=== PATIENT | male | born 1970 | race Caucasian/White ===

== ENCOUNTER 2018-07-22 10:44 | Emergency (ER) | payer SELFPAY ==
[2018-07-22 10:53] VITALS: BP 156/82; PULSE 66; RESP 18; TEMP 36.8; O2SAT 98
--- NOTE | 2018-07-22 11:05 | DI.RAD.S_ITS ---
PROCEDURE: XR CHEST 1V INDICATIONS: chest pain TECHNIQUE: One view of the chest was acquired. COMPARISON: None. FINDINGS: Surgical changes and devices: None. Lungs and pleura: Lungs are clear. No pleural effusions or pneumothorax. Mediastinum: Mediastinal contours appear normal. Heart size is normal. Bones and chest wall: No suspicious bony lesions. Overlying soft tissues appear unremarkable. IMPRESSION: No acute process. Dictated by: Cynthia Galeano M.D. on 07/22/2018 at 11:25 Approved by: Cynthia Galeano M.D. on 07/22/2018 at 11:25
[2018-07-22 11:34] VITALS: BP 150/79; PULSE 60; RESP 10; O2SAT 98
[2018-07-22] MEDS: ONDANSETRON 4 MG/2 ML INJ IV (11:58)
--- NOTE | 2018-07-22 12:00 | ED_ITS ---
HPI - Chest Pain General Chief Complaint: Chest Pain Stated Complaint: CHEST PAIN,TIRED,VOMITING Time Seen by Provider: 07/22/18 11:57 Source: patient Mode of arrival: ambulatory Limitations: no limitations History of Present Illness HPI narrative: Patient is a 47-year-old male who presents with chest discomfort. He has had some burning epigastric pain ongoing for the last 4 days. He occasionally feels nauseated and dry heaving but no actual vomit. He has no shortness of breath. He occasionally gets chills which last for about a 2nd but no significant sweats. He has never had anything like this before. He occasionally gets epigastric pain going up into his neck. Lasting briefly. No heart palpitations MD complaint: chest pain Duration: intermittent Related Data Previous Rx's Medication Instructions Recorded ondansetron 4 mg PO Q8H PRN #10 tab 07/22/18 Allergies Allergy/AdvReac Type Severity Reaction Status Date / Time No Known Drug Allergies Allergy Verified 07/22/18 10:58 Review of Systems Review of Systems GENERAL: Denies chills, fatigue, malaise, fever, sweats, travel HEENT: Denies sinus pain, ear pain, sore throat, difficulty swallowing, neck pain RESPIRATORY: Denies dyspnea, cough, wheezing, hemoptysis, sputum. CARDIOVASCULAR: See HPI GASTROINTESTINAL: Denies nausea, vomiting, abdominal pain, diarrhea, constipation, melena. : Denies dysuria, frequency, incontinence, hematuria, urinary retention, flank pain. MUSCULOSKELETAL: Denies weakness, joint pain, or bony pain SKIN: No rash, no erythema, no pruritus NEUROLOGIC: Denies weakness, dizziness, headache, numbness, change in speech, confusion PSYCHIATRIC: No concerning psychosocial issues. 12 point review of systems is negative except for those stated above and HPI [facility] Social History Smoking Status: Current every day smoker Social History Smoking Status: Current every day smoker Exam Initial Vital Signs Initial Vital Signs: Vital Signs Temperature 98.3 F 07/22/18 10:53 Pulse Rate 66 07/22/18 10:53 Respiratory Rate 18 07/22/18 10:53 Blood Pressure 156/82 H 07/22/18 10:53 Pulse Oximetry 98 07/22/18 10:53 GENERAL: Anxious male no acute distress HEENT: Head atraumatic,EOMI, pupils reactive, face symmetric, CARDIOVASCULAR: Regular rate and rhythm without murmurs, rubs or gallops. RESPIRATORY: Breath sounds equal bilaterally, no wheezes rales or rhonchi. ABDOMEN: Soft, nontender. Normoactive bowel sounds all 4 quadrants. No guarding or rebound. Minimal epigastric pain no right upper quadrant pain EXTREMITIES: Normal range of motion, no clubbing or edema. Neurovascularly intact NEUROLOGICAL: Alert and oriented x4.Normal gait and speech. Cranial nerves II through XII grossly intact. SKIN: Warm, dry, no laceration, no petechiae, no rashes or lesions. Course Orders Ordered: ED Orders 07/22/18 11:05 XR chest 1V Stat EKG-12 Lead Stat 07/22/18 11:55 Complete Blood Count AUTO DIFF Stat Comprehensive Metabolic Panel Stat Lipase Stat Partial Thromboplastin Time Stat Prothrombin Time INR Stat Troponin & CK Cardiac Panel Stat Discontinued Medications Albuterol/Ipratropium (Duoneb) 3 ml INH NOW ONE Stop: 07/22/18 12:03 Last Admin: 07/22/18 12:03 Dose: 3 ml Hydroxyzine HCl (Vistaril) 50 mg IM NOW ONE Stop: 07/22/18 12:54 Last Admin: 07/22/18 13:08 Dose: 50 mg Sodium Chloride (Normal Saline 0.9%) 1,000 mls @ 1,000 mls/hr IV BOLUS ONE Stop: 07/22/18 13:10 Last Infusion: 07/22/18 14:01 Dose: 0 mls/hr Admin: 07/22/18 13:08 Dose: 1,000 mls/hr Ondansetron HCl (Zofran) 4 mg IV NOW ONE Stop: 07/22/18 11:19 Last Admin: 07/22/18 11:58 Dose: 4 mg Pantoprazole Sodium (Protonix) 40 mg IV NOW ONE Stop: 07/22/18 12:54 Last Admin: 07/22/18 13:08 Dose: 40 mg Vital Signs - 8 hr 07/22/18 10:53 07/22/18 11:34 07/22/18 12:03 Temperature 98.3 F Pulse Rate 66 60 97 H Respiratory Rate 18 10 L 11 L Blood Pressure 156/82 H Blood Pressure [Left Arm] 150/79 H Pulse Oximetry 98 98 98 07/22/18 12:27 07/22/18 13:35 Temperature Pulse Rate 61 66 Respiratory Rate 18 12 Blood Pressure Blood Pressure [Left Arm] 158/81 H Pulse Oximetry 99 99 MDM - Chest Pain Lab Data Attestation: I reviewed the patient's lab results. Result diagrams: 07/22/18 11:55 07/22/18 11:55 Lab Results 07/22/18 07/22/18 07/22/18 Range/Units 11:55 11:55 11:55 WBC 7.9 (4.5-11.0) X10^3/uL RBC 4.99 (4.5-5.9) X10^6/uL Hgb 16.0 (13.5-17.5) g/dL Hct 46.3 (41-53) % MCV 92.9 (80-100) fL MCH 32.0 (26-34) PG MCHC 34.5 (30-36) % RDW 13.3 (11.6-14.8) % Plt Count 176 (150-400) X10^3/uL Neut % (Auto) 72.2 (50-75) % Lymph % (Auto) 18.3 L (25-40) % [place] % (Auto) 6.4 (3-14) % Eos % (Auto) 2.8 (2-4) % Baso % (Auto) 0.3 (0-2) % Neut # (Auto) 5700 (4477-2626) /uL Lymph # (Auto) 1400 (0333-3785) /uL [place] # (Auto) 500 (0-900) /uL Eos # (Auto) 200 (0-450) /uL Baso # (Auto) 0 (0-100) /uL PT 11.5 (10.1-12.7) SECONDS INR 1.0 (0.9-1.3) APTT 30 (26.4-36.2) SECONDS Sodium 139 (137-145) mmol/L Potassium 4.1 (3.4-5.1) mmol/L Chloride 102 (98-107) mmol/L Carbon Dioxide 27 (22-32) mmol/L BUN 14 (9-20) mg/dL Creatinine 0.60 L (0.66-1.25) mg/dL Estimated GFR > 60.0 (>60) mL/min BUN/Creatinine Ratio 23.3 H (6-22) Glucose 154 H (70-100) mg/dL Calcium 10.3 H (8.4-10.2) mg/dL Total Bilirubin 0.4 (0.2-1.3) mg/dL AST 28 (17-59) IU/L ALT 40 (21-72) IU/L Alkaline Phosphatase 50 (38-126) U/L Total Creatine Kinase 47 L (55-170) U/L CK-MB (CK-2) TNP CK-MB (CK-2) Rel Index TNP Troponin I < 0.012 (0.01-0.034) ng/mL Total Protein 7.5 (6.3-8.2) g/dL Albumin 4.6 (3.5-5.0) g/dL Globulin 2.9 (1.7-4.1) g/dL Albumin/Globulin Ratio 1.6 (1.0-2.8) Lipase 325 H (23-300) U/L Urine Dip Bedside Urine Glucose Negative Bedside Urine Bilirubin - Negative Bedside Urine Ketone - Negative Urine Specific [place] 1.015 Bedside Urine Occult Blood - Negative Bedside Urine pH 7.5 Bedside Urine Protein - Negative Bedside Urine Urobilinogen - Negative Bedside Urine Nitrite - Negative Bedside Urine Leukocytes - Negative Esterase Imaging Data Chest x-ray: Radiologist's impression: PROCEDURE: XR CHEST 1V INDICATIONS: chest pain TECHNIQUE: One view of the chest was acquired. COMPARISON: None. FINDINGS: Surgical changes and devices: None. Lungs and pleura: Lungs are clear. No pleural effusions or pneumothorax. Mediastinum: Mediastinal contours appear normal. Heart size is normal. Bones and chest wall: No suspicious bony lesions. Overlying soft tissues appear unremarkable. IMPRESSION: No acute process. Dictated by: Cynthia Galeano M.D. on 07/22/2018 at 11:25 ECG Data Attestation: I personally reviewed and interpreted this ECG as follows: Prior ECG tracings: not available for review Interpretation: Normal sinus rhythm rate 53 MO interval [address] changes no T-wave inversions no prior to compare [facility] Narrative Medical decision making narrative: Patient vomiting. Vistaril IM given. He has no right upper quadrant pain. No elevated bilirubin lipase or liver enzymes. At this time likely gastroenteritis. He is actually requesting to use the bathroom for a bowel movement. Tolerating oral fluids feeling better and ready and able to go home. I discussed results with him. Discharge Plan Departure Patient Disposition: Home Clinical Impression: Gastroenteritis Discharge Date/Time: 07/22/18 14:11 Interventions: ED Discharge Assessment Last Done: 07/22/18 14:07 Instructions: DI for Viral Gastroenteritis -- Adult Activity Restrictions/Additional Instructions: *You have been diagnosed with gastroenteritis *What to do: Increase fluid intake with Gatorade or Gatorade like substance or Pedialyte, popsicles, Jell-O, broth except her a. Small frequent sips will help keep you hydrated. May advance diet as tolerated. *Continue to take medications as directed Zofran 4 mg every 6-8 hours if needed for nausea or vomiting *Follow up with your primary care provider in 2-3 days *Return to ER if you should have inability keep fluids down, increasing pain, chest pain shortness of breath or or any new, worsening or concerning symptoms Prescriptions: New ondansetron 4 mg tablet,disintegrating 4 mg PO Q8H PRN (Reason: nausea and vomiting) Qty: 10 RF: 0 Referrals: [facility] [Provider Group] [facility] [Provider Group] [facility] [Provider Group]
[2018-07-22 12:03] VITALS: PULSE 97; RESP 11; O2SAT 98
[2018-07-22] MEDS: ALBUTEROL/IPRATROPIUM 3 ML AMPUL INH (12:03)
[2018-07-22 12:04] LABS: Add Manual Diff / Slide Review NO; Basophils Absolute Auto 0 /uL (0-100); Basophils Percent Auto 0.3 % (0-2); Eosinophils Absolute Auto 200 /uL (0-450); Eosinophils Percent Auto 2.8 % (2-4); Hematocrit 46.3 % (41-53); Lymphocytes Absolute Auto 1400 /uL (1100-4500); Lymphocytes Percent Auto 18.3 % (25-40); Mean Corpuscular HGB Conc 34.5 % (30-36); Mean Corpuscular Volume 92.9 fL (80-100); Monocytes Absolute Auto 500 /uL (0-900); Monocytes Percent Auto 6.4 % (3-14); Neutrophils Absolute Auto 5700 /uL (1500-7000); Neutrophils Percent Auto 72.2 % (50-75); Platelet Count 176 X10^3/uL (150-400); Red Blood Cell Count 4.99 X10^6/uL (4.5-5.9); Red Cell Distribution Width 13.3 % (11.6-14.8); White Blood Cell Count 7.9 X10^3/uL (4.5-11.0)
[2018-07-22 12:10] LABS: Prothrombin Time 11.5 SECONDS (10.1-12.7)
[2018-07-22 12:13] LABS: PTT Partial Thromboplastin Tim 30 SECONDS (26.4-36.2)
[2018-07-22 12:15] LABS: Alanine Aminotransferase 40 IU/L (21-72); Albumin 4.6 g/dL (3.5-5.0); Albumin Globulin Ratio 1.6 (1.0-2.8); Alkaline Phosphatase 50 U/L (38-126); Aspartate Aminotransferase 28 IU/L (17-59); BUN Creatinine Ratio 23.3 (6-22); Bilirubin Total 0.4 mg/dL (0.2-1.3); Blood Urea Nitrogen 14 mg/dL (9-20); Calcium 10.3 mg/dL (8.4-10.2); Carbon Dioxide 27 mmol/L (22-32); Chloride 102 mmol/L (98-107); Creatine Kinase 47 U/L (55-170); Estimated Glomerular Filt Rate > 60.0 mL/min (>60); Globulin 2.9 g/dL (1.7-4.1); Glucose 154 mg/dL (70-100); HEMOLYSIS < 15 (0-50); Lipase 325 U/L (23-300); Potassium 4.1 mmol/L (3.4-5.1); Sodium 139 mmol/L (137-145); Total Protein 7.5 g/dL (6.3-8.2)
[2018-07-22 12:26] LABS: Troponin I < 0.012 ng/mL (0.01-0.034)
[2018-07-22 12:27] VITALS: PULSE 61; RESP 18; O2SAT 99
[2018-07-22] MEDS: SODIUM CHLORIDE 0.9% 1,000 ML 1000 ML IV (13:08)
[2018-07-22] MEDS: hydrOXYzine 50 MG/ML INJ IM (13:08)
[2018-07-22] MEDS: PANTOPRAZOLE 40 MG VIAL IV (13:08)
--- NOTE | 2018-07-22 13:13 | PC.NURSE ---
Pt with increase in nausea with episode of emesis. Provider aware. New orders given
[2018-07-22 13:35] VITALS: BP 158/81; PULSE 66; RESP 12; O2SAT 99
== END 2018-07-22 14:11 | disposition home or self-care (01) ==
PROVIDERS: Emergency Provider Emergency Medicine
DX: K52.9 Noninfective gastroenteritis and colitis, unspecified (principal)
CPT/HCPCS: 36591; 71045; 80053; 81003; 82550; 83690; 84484; 85025; 85610; 85730; 93005; 93010; 94640; 96361; 96372; 96374; 96375; 99283; 99285; C9113; J2405; J3410

== ENCOUNTER 2019-05-23 08:12 | Emergency (ER) | payer SELFPAY ==
[2019-05-23 08:19] VITALS: BP 135/80; PULSE 80; RESP 20; TEMP 36.8; O2SAT 95
--- NOTE | 2019-05-23 08:26 | ED.URI ---
HPI - URI/Sore Throat General Chief Complaint: Upper Respiratory Symptoms Stated Complaint: Flu like symptoms, aches all over Time Seen by Provider: 05/23/19 08:17 Source: patient Mode of arrival: Ambulatory Limitations: no limitations History of Present Illness HPI Narrative: Patient comes emergency department complaining of body aches, chills,,, sore throat, and congestion. 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 Patient states that he has not had any abdominal pain, nausea, or vomiting. He states that he is otherwise a fairly healthy person, except for asthma and smoking. Patient denies any other complaints at this time. Related Data Previous Rx's Medication Instructions Recorded ondansetron 4 mg PO Q8H PRN #10 tab 07/22/18 Allergies Allergy/AdvReac Type Severity Reaction Status Date / Time No Known Drug Allergies Allergy Verified 07/22/18 10:58 Review of Systems Constitutional Constitutional: Reports chills, Reports fatigue, Reports fever(s), Denies frequent falls, Denies lethargy and Denies weakness Eyes Eyes: Denies change in vision, Denies eye discharge, Denies irritation and Denies loss of vision ENT Ears, Nose, Mouth, and Throat: Denies change in voice, Denies dizziness, Denies neck pain, Reports sore throat and Denies throat swelling Cardiovascular Cardiovascular: Denies chest pain, Denies irregular heart rhythm, Denies lightheadedness, Denies palpitations, Denies dyspnea, Denies dyspnea on exertion and Denies orthopnea Respiratory Respiratory: Reports cough, Denies dyspnea, Denies dyspnea on exertion and Denies wheezing Gastrointestinal Gastrointestinal: Denies abdominal pain, Denies change in bowel habits, Denies diarrhea, Denies nausea and Denies vomiting Genitourinary Genitourinary: Denies hematuria, Denies flank pain, Denies urinary incontinence and Denies urinary urgency Musculoskeletal Musculoskeletal: Denies back pain, Denies muscle weakness, Denies neck pain, Denies numbness and Denies tingling Integumentary/Breasts Skin/Breast: Denies pruritus, Denies erythema, Denies rash and Denies wounds Neurologic Neurologic: Denies behavioral changes, Denies confusion, Denies dizziness, Denies frequent falls, Denies loss of vision, Denies numbness, Denies tingling and Denies weakness Psychiatric Psychiatric: Denies anxiety, Denies behavioral changes, Denies confusion, Denies depression, Denies homicidal ideation and Denies suicidal ideation Endocrine Endocrine: Reports fatigue, Denies flushing and Denies palpitations Hematologic/Lymphatic Hematologic/Lymphatic: Denies easy bruising Allergic/Immunologic Allergic/Immunologic: Denies urticaria, Denies throat swelling and Denies wheezing Patient History Medical History Acute asthma exacerbation (Acute) Social History Smoking Status: Current every day smoker Smoking Status: Current every day smoker alcohol intake frequency: 0-2 drinks per day Substance Use Type: marijuana Exam Initial Vital Signs Initial Vital Signs: Vital Signs Temperature 98.3 F 05/23/19 08:19 Pulse Rate 80 05/23/19 08:19 Respiratory Rate 20 05/23/19 08:19 Blood Pressure 135/80 05/23/19 08:19 Pulse Oximetry 95 05/23/19 08:19 Const General: cooperative and well developed Nutritional Appearance: well nourished Orientation: alert, awake, oriented x3 and not confused [facility] Head: normocephalic and atraumatic Ears: external ears normal Nose: external nose normal and No nasal discharge Face and sinus: face symmetric and No dry mucous membranes Mouth: oral mucosae normal and moist mucous membranes Teeth and gingiva: dentition normal Throat: tonsils normal and uvula midline Eyes General: appearance normal, both eyes and all related structures Eyelids: eyelids normal Conjunctivae: conjunctivae normal Sclera: sclerae normal Pupils: PERRL EOM: EOM intact bilaterally Neck Neck: normal visual inspection, trachea midline, No lymphadenopathy, No midline deformity and No JVD Lymphatic: No lymphedema Chest Chest: normal inspection of the chest Resp Effort & Inspection: normal respiratory effort, able to speak in complete sentences, no respiratory distress and no use of accessory muscles Auscultation: clear to auscultation bilaterally, no rales, no rhonchi and no wheezes Cardio Rate: regular rate Rhythm: regular rhythm Heart Sounds: no click, no gallops, no murmurs and no rubs Pulses: normal peripheral pulses GI Inspection: non-distended Palpation: soft, no hepatosplenomegaly, No guarding, No pulsatile mass and No tender Back/Spine/Pelvis Back: No CVA tenderness Cervical Spine: cervical ROM normal and No pain with cervical ROM Thoracic/Lumbar Spine: thoracic and lumbar spine normal to inspection Skin General: no rashes or lesions noted, No jaundice and No petechiae Neuro General: alert, oriented x3, gait normal and no focal motor deficits Speech: speech normal Extrem General: full ROM, no clubbing, cyanosis or edema, no pedal edema and no calf tenderness Psych Appearance: well kempt Mental Status: mental status grossly normal Attitude: cooperative Thought Content: normal and suicidality Judgment: judgment good Course Course Course Narrative: Patient was treated symptomatically with ibuprofen and Tylenol, and worked up with influenza testing, which was negative. Patient is found to be feeling better after ibuprofen and Tylenol. We've discussed home management of symptoms, as well as the usual indications for return. We've discussed that this illness would be expected to be self-limited in the next week. Orders Ordered: Discontinued Medications Acetaminophen (Tylenol) 650 mg PO NOW ONE Stop: 05/23/19 08:26 Last Admin: 05/23/19 08:38 Dose: 650 mg Documented by: EDMUNDO Ibuprofen (Advil) 800 mg PO NOW ONE Stop: 05/23/19 08:26 Last Admin: 05/23/19 08:38 Dose: 800 mg Documented by: EDMUNDO Vital Signs Vital signs: Vital Signs - 8 hr 05/23/19 08:19 Temperature 98.3 F Pulse Rate 80 Respiratory Rate 20 Blood Pressure 135/80 Pulse Oximetry 95 MDM - URI/Sore Throat Medical Records Attestation: I reviewed the patient's medical records. Lab Data Attestation: I reviewed the patient's lab results. Labs: Lab Results 05/23/19 Range/Units 08:18 Influenza A (RT-PCR) Flu a negative (NEGATIVE) Influenza B (RT-PCR) Flu b negative (NEGATIVE) Discharge Plan Departure Patient Disposition: Home Clinical Impression: Viral infection Discharge Date/Time: 05/23/19 09:26 Instructions: DI for Viral Syndrome Activity Restrictions/Additional Instructions: Your influenza test was negative. Given your symptoms, you most likely have any flu-like viruses that go around this time of year. These are not treatable with antibiotics, but your body will fight virus off on its own. Symptoms usually last anywhere from several days to a couple of weeks. Please be sure to drink plenty of fluids and take ibuprofen and Tylenol as needed for fevers and body aches. Be sure to get plenty of rest over the next couple of days to help your body heal. Prescriptions: No Action ondansetron 4 mg tablet,disintegrating 4 mg PO Q8H PRN (Reason: nausea and vomiting) Qty: 10 RF: 0 Referrals: [facility] [Provider Group] Juice Arnett MD [Non-Staff] -
[2019-05-23] MEDS: ACETAMINOPHEN 325 MG TABLET 650 MG PO (08:38)
[2019-05-23] MEDS: IBUPROFEN 400 MG TABLET 800 MG PO (08:38)
[2019-05-23 08:55] LABS: Influenza A - CEPHEID Flu A NEGATIVE (NEGATIVE); Influenza B - CEPHEID Flu B NEGATIVE (NEGATIVE)
[2019-05-23 09:24] VITALS: PULSE 85; RESP 19; O2SAT 96
== END 2019-05-23 09:26 | disposition home or self-care (01) ==
LOC: ED 09:28
PROVIDERS: Emergency Provider Emergency Medicine
DX: B34.9 Viral infection, unspecified (principal)
CPT/HCPCS: 87502; 99281; 99282

== ENCOUNTER 2019-11-15 09:57 | Emergency (ER) | payer SELFPAY ==
--- NOTE | 2019-11-15 10:05 | DI.RAD.S_ITS ---
PROCEDURE: XR CHEST 1V INDICATIONS: chest pain TECHNIQUE: One view of the chest was acquired. COMPARISON: [facility], CR, XR CHEST 1V, 07/22/2018, 11:18. FINDINGS: Surgical changes and devices: None. Lungs and pleura: Lungs are clear. No pleural effusions or pneumothorax. Mediastinum: Mediastinal contours appear normal. Heart size is normal. Bones and chest wall: No suspicious bony lesions. Overlying soft tissues appear unremarkable. Old right rib fractures. IMPRESSION: No acute pulmonary process. Dictated by: Katie Ortiz M.D. on 11/15/2019 at 10:22 Approved by: Katie Ortiz M.D. on 11/15/2019 at 10:23
[2019-11-15 10:06] VITALS: BP 186/80; PULSE 86; RESP 20; TEMP 36.9; O2SAT 97
--- NOTE | 2019-11-15 10:12 | ED_ITS ---
HPI - Chest Pain General Chief Complaint: Chest Pain Stated Complaint: CHEST TIGHTNESS/ JAW PAIN YESTERDAY Time Seen by Provider: 11/15/19 10:12 History of Present Illness HPI narrative: 49-year-old gentleman with no significant medical history however also does not have a primary care physician or see providers. 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 Use to active lifestyle as well as heavy lifting. Does not described any increased her change exercise behaviors recently. Noticed chest pain while driving yesterday was a 10 minutes of pain in the left chest under the ribs not associated with dyspnea diaphoresis or radiation resolved spontaneously. Later in the day some emotional stress at work and he noticed severe chest pain and tightness all across his entire chest and then began radiating up into both sides of his jaw. Lasted approximately 30 minutes and then resolved spontaneously. Notes that he does take aspirin regularly for chronic neck issues. He also notes had increased stressors at work increased overall frustration and feels that his pain is likely related to that. He notes a similar episode of pain not quite as severe not lasting quite as long approximately 6 months ago and associated with similar work frustrations His family history is significant for cancer, mother with cancer of brother with cancer father with diabetes that eventually of cardiac issues but no overt or early cardiac disease in the family. He does smoke cigarettes. Related Data Previous Rx's Medication Instructions Recorded ondansetron 4 mg PO Q8H PRN #10 tab 07/22/18 Allergies Allergy/AdvReac Type Severity Reaction Status Date / Time No Known Drug Allergies Allergy Verified 11/15/19 10:16 Review of Systems Review of Systems Narrative: Pertinent positive and negative findings as per HPI Remainder of review of systems is otherwise unremarkable for Constitutional: Fevers, chills, weakness ENT: No sore throat, neck pain, ear pain CV: palpitations, dyspnea on exertion Respiratory: Cough, wheeze, dyspnea GI: Nausea, vomiting, diarrhea, change in bowel habits, black or bloody stools : Dysuria, hematuria, flank pain MS: Muscle weakness, numbness, joint swelling or warmth Skin: Rashes, nonhealing lesions Neuro: Syncope, dizziness, tingling Psych: Depression, suicidal ideation Endocrine: Fatigue, heat or cold intolerance, very dry skin Patient History Medical History Acute asthma exacerbation (Acute) Asthma (Acute) Asthma exacerbation (Inactive) Chronic neck pain (Acute) Smoker (Acute) Social History Smoking Status: Current every day smoker Smoking Status: Current every day smoker alcohol intake frequency: 0-2 drinks per day Substance Use Type: marijuana Exam Narrative Exam Narrative: General: Healthy appearing, in no acute distress. Able to give a complete and coherent history. Well-nourished well-developed HEENT: Moist mucous membranes, normal sclera with reactive pupils, Neck: No JVD, supple Respiratory: Lungs are clear to auscultation, no wheezing no rales no rhonchi. Full and symmetrical air movement Cardiac: Regular rate and rhythm no murmurs no bruits Abdomen: Soft nontender good bowel tones, no flank pain Skin: Warm and dry, no rashes Neurologic: Grossly neurologically intact with no obvious asymmetries or abnormalities Extremities: No trauma, well perfused Psych: Cooperative, appropriate insight and affect, mildly anxious Initial Vital Signs Initial Vital Signs: Vital Signs Temperature 98.4 F 11/15/19 10:06 Pulse Rate 86 11/15/19 10:06 Respiratory Rate 20 11/15/19 10:06 Blood Pressure 186/80 H 11/15/19 10:06 Pulse Oximetry 97 11/15/19 10:06 Course Orders Ordered: ED Orders 11/15/19 10:05 XR chest 1V Stat EKG-12 Lead Stat 11/15/19 10:12 Complete Blood Count AUTO DIFF Stat Comprehensive Metabolic Panel Stat Lipase Stat Partial Thromboplastin Time Stat Prothrombin Time INR Stat Troponin & CK Cardiac Panel Stat Vital Signs Vital signs: Vital Signs - 8 hr 11/15/19 10:30 11/15/19 11:30 11/15/19 12:00 Pulse Rate 62 66 59 L Respiratory Rate 18 17 18 Blood Pressure [Left Arm] 159/77 H 132/63 131/72 Pulse Oximetry 94 97 97 MDM - Chest Pain Medical Records Data Attestation: I reviewed the patient's medical records. Lab Data Attestation: I reviewed the patient's lab results. Lab results narrative: Negative troponin Result diagrams: 11/15/19 10:12 11/15/19 10:12 Labs: Lab Results 11/15/19 11/15/19 11/15/19 Range/Units 10:12 10:12 10:12 WBC 6.4 (4.5-11.0) X10^3/uL RBC 4.78 (4.5-5.9) X10^6/uL Hgb 15.6 (13.5-17.5) g/dL Hct 44.8 (41-53) % MCV 93.8 (80-100) fL MCH 32.7 (26-34) PG MCHC 34.9 (30-36) % RDW 13.4 (11.6-14.8) % Plt Count 197 (150-400) X10^3/uL Neut % (Auto) 54.3 (50-75) % Lymph % (Auto) 31.8 (25-40) % [place] % (Auto) 9.8 (3-14) % Eos % (Auto) 3.6 (2-4) % Baso % (Auto) 0.5 (0-2) % Neut # (Auto) 3500 (7911-1618) /uL Lymph # (Auto) 2100 (5136-4465) /uL [place] # (Auto) 600 (0-900) /uL Eos # (Auto) 200 (0-450) /uL Baso # (Auto) 0 (0-100) /uL PT 12.2 (10.1-12.7) SECONDS INR 1.1 (0.9-1.3) APTT 29 (26.4-36.2) SECONDS Sodium 140 (137-145) mmol/L Potassium 4.4 (3.4-5.1) mmol/L Chloride 105 (98-107) mmol/L Carbon Dioxide 28 (22-32) mmol/L BUN 19 (9-20) mg/dL Creatinine 1.00 (0.66-1.25) mg/dL Estimated GFR > 60.0 (>60) mL/min BUN/Creatinine Ratio 19.0 (6-22) Glucose 90 (70-100) mg/dL Calcium 9.9 (8.4-10.2) mg/dL Total Bilirubin 0.5 (0.2-1.3) mg/dL AST 31 (17-59) IU/L ALT 24 (<50) IU/L Alkaline Phosphatase 48 (38-126) U/L Total Creatine Kinase 95 (55-170) U/L CK-MB (CK-2) TNP CK-MB (CK-2) Rel Index TNP Troponin I < 0.012 (0.01-0.034) ng/mL Total Protein 7.8 (6.3-8.2) g/dL Albumin 4.7 (3.5-5.0) g/dL Globulin 3.1 (1.7-4.1) g/dL Albumin/Globulin Ratio 1.5 (1.0-2.8) Lipase 50 (23-300) U/L Imaging Data Chest x-ray: Radiologist's Impression: IMPRESSION: No acute pulmonary process. Dictated by: Katie Ortiz M.D. on 11/15/2019 at 10:22 ECG Data Attestation: I personally reviewed and interpreted this ECG as follows: Interpretation: Sinus rhythm at a rate of 79 Normal axis, normal intervals Normal EKG without any evidence of ischemia MDM Narrative Medical decision making narrative: 49-year-old gentleman presents after an episode of approximately 30 minutes of chest pressure and tightness yesterday related to significant work stressors/anxiety. Negative troponin reassuring EKG. There is no evidence of infection, pneumothorax, pulmonary embolism, aortic dissection or other significant pathology. He does not follow up with primary care physician. At this point there is no indication for hospital admission however I am going to recommend that he establish and follow-up with a primary care physician to discuss additional cardiac testing as an outpatient for further risk stratification He is safe for home discharge Discharge Plan Departure Patient Disposition: Home Clinical Impression: Acute situational disturbance Chest pain Qualifiers: Chest pain type: other chest pain Qualified Code(s): R07.89 - Other chest pain Discharge Date/Time: 11/15/19 12:36 Instructions: DI for Atypical Chest Pain Activity Restrictions/Additional Instructions: Thank you for coming in today Your workup in the emergency room today does not suggest an acute heart attack or heart attack like syndrome. Similarly, I do not find any evidence of infection, tumors masses or collapsed lung to explain the chest tightness that you noted yesterday. I do suspect that the extra stress related to work frustrated and added to this chest pain. Such stress can cause heart attacks and should be taken seriously. Please consider establishing care with a primary care physician. You can use our Health corporate fitness program coordinator at [phone] to help find a primary care physician. It would be a good idea to establish a primary care physician, discuss some of these chest findings as well as routine screenings for overall health and see what additional outpatient recommendations they have to make sure your heart is as healthy as possible. If you do notice increasing or recurrent pain it would be very appropriate to return to the emergency department. Prescriptions: No Action ondansetron 4 mg tablet,disintegrating 4 mg PO Q8H PRN (Reason: nausea and vomiting) Qty: 10 RF: 0
[2019-11-15 10:19] LABS: Add Manual Diff / Slide Review NO; Basophils Absolute Auto 0 /uL (0-100); Basophils Percent Auto 0.5 % (0-2); Eosinophils Absolute Auto 200 /uL (0-450); Eosinophils Percent Auto 3.6 % (2-4); Hematocrit 44.8 % (41-53); Hemoglobin 15.6 g/dL (13.5-17.5); Lymphocytes Absolute Auto 2100 /uL (1100-4500); Lymphocytes Percent Auto 31.8 % (25-40); Mean Corpuscular HGB Conc 34.9 % (30-36); Mean Corpuscular Hemoglobin 32.7 PG (26-34); Mean Corpuscular Volume 93.8 fL (80-100); Monocytes Absolute Auto 600 /uL (0-900); Monocytes Percent Auto 9.8 % (3-14); Neutrophils Absolute Auto 3500 /uL (1500-7000); Neutrophils Percent Auto 54.3 % (50-75); Platelet Count 197 X10^3/uL (150-400); Red Blood Cell Count 4.78 X10^6/uL (4.5-5.9); Red Cell Distribution Width 13.4 % (11.6-14.8); White Blood Cell Count 6.4 X10^3/uL (4.5-11.0)
[2019-11-15 10:27] LABS: INR 1.1 (0.9-1.3); Prothrombin Time 12.2 SECONDS (10.1-12.7)
[2019-11-15 10:29] LABS: PTT Partial Thromboplastin Tim 29 SECONDS (26.4-36.2)
[2019-11-15 10:30] VITALS: BP 159/77; PULSE 62; RESP 18; O2SAT 94
[2019-11-15 10:35] LABS: Alanine Aminotransferase 24 IU/L (<50); Albumin 4.7 g/dL (3.5-5.0); Albumin Globulin Ratio 1.5 (1.0-2.8); Alkaline Phosphatase 48 U/L (38-126); Aspartate Aminotransferase 31 IU/L (17-59); Bilirubin Total 0.5 mg/dL (0.2-1.3); Blood Urea Nitrogen 19 mg/dL (9-20); Calcium 9.9 mg/dL (8.4-10.2); Carbon Dioxide 28 mmol/L (22-32); Chloride 105 mmol/L (98-107); Creatine Kinase 95 U/L (55-170); Estimated Glomerular Filt Rate > 60.0 mL/min (>60); Globulin 3.1 g/dL (1.7-4.1); Glucose 90 mg/dL (70-100); HEMOLYSIS 20 (0-50); Lipase 50 U/L (23-300); Potassium 4.4 mmol/L (3.4-5.1); Sodium 140 mmol/L (137-145); Total Protein 7.8 g/dL (6.3-8.2)
[2019-11-15 10:45] LABS: Troponin I < 0.012 ng/mL (0.01-0.034)
[2019-11-15 11:30] VITALS: BP 132/63; PULSE 66; RESP 17; O2SAT 97
[2019-11-15 12:00] VITALS: BP 131/72; PULSE 59; RESP 18; O2SAT 97
== END 2019-11-15 12:36 | disposition home or self-care (01) ==
PROVIDERS: Emergency Provider Emergency Medicine
DX: R07.89 Other chest pain (principal); F43.0 Acute stress reaction
CPT/HCPCS: 36415; 71045; 80053; 82550; 83690; 84484; 85025; 85610; 85730; 93005; 99284

== ENCOUNTER 2020-06-27 07:00 | Emergency (ER) | payer SELFPAY ==
[2020-06-27 07:12] VITALS: BP 135/79; PULSE 79; RESP 16; TEMP 36.5; O2SAT 95; BMI 29.7
[2020-06-27] MEDS: PROPARACAINE 0.5% OPHTH SOL 2 DROPS EYE-RIGHT (07:27)
[2020-06-27] MEDS: FLUORESCEIN 1 MG STRIP EYE-RIGHT (07:27)
--- NOTE | 2020-06-27 07:42 | ED.EYEPROB ---
HPI - Eye Problem General Chief complaint: Eye Problems Stated complaint: right eye flushed Time Seen by Provider: 06/27/20 07:38 Source: patient Mode of arrival: Ambulatory Limitations: no limitations History of Present Illness HPI Narrative: Patient is a 49-year-old male who presents with right eye irritation. 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 He denies any blurred vision or double vision but his eyes quite irritated. He does not were contacts or glasses he was not wearing safety glasses at the time. He feels like something is up in his upper eyelid. chief complaint: eye pain Onset (ago): day(s) Onset description: sudden Duration: constant Location: right eye Eye Symptoms: redness, pain and foreign body sensation Place: work Mechanism: direct trauma Related Data Previous Rx's Medication Instructions Recorded ondansetron 4 mg PO Q8H PRN #10 tab 07/22/18 polymyxin B sulf-trimethoprim 1 drp EYE-RIGHT Q4HRWA 7 Days #10 06/27/20 [Polytrim] ml Allergies Allergy/AdvReac Type Severity Reaction Status Date / Time No Known Drug Allergies Allergy Verified 06/27/20 07:12 Review of Systems Review of Systems Narrative: GENERAL: Denies chills,fever HEENT: See HPI, denies throat pain RESPIRATORY: Denies dyspnea, cough, wheezing CARDIOVASCULAR: Denies chest pain, palpitations GASTROINTESTINAL: Denies nausea, vomiting MUSCULOSKELETAL: Denies extremity pain, injury SKIN: No rash, no laceration, no pruritus NEUROLOGIC: Denies weakness, dizziness, headache, numbness 8 point review of systems is negative except for those stated above and HPI Patient History Medical History Acute asthma exacerbation Asthma Asthma exacerbation Chronic neck pain Smoker Social History Smoking Status: Current every day smoker Smoking Status: Current every day smoker alcohol intake frequency: 0-2 drinks per day Alcohol type: beer Substance Use Type: marijuana Exam Initial Vital Signs Initial Vital Signs: Vital Signs Temperature 97.7 F 06/27/20 07:12 Pulse Rate 79 06/27/20 07:12 Respiratory Rate 16 06/27/20 07:12 Blood Pressure 135/79 06/27/20 07:12 Pulse Oximetry 95 06/27/20 07:12 GENERAL: Well-appearing, well-nourished and in no acute distress. Right eye was treated with proparacaine, stained with fluorescein. No dye uptake. No foreign body. Irrigated with 2 flushes CARDIOVASCULAR: peripheral pulses in tact, cap refill <2 sec RESPIRATORY: No respiratory distress, speaks in full sentences without difficulty EXTREMITIES: Normal range of motion, no clubbing or edema. Neurovascularly intact NEUROLOGICAL: Cranial nerves II through XII grossly intact. Normal gait and speech. SKIN: Warm, dry, no petechiae, no rashes or lesions. Course Orders Ordered: Discontinued Medications Fluorescein Sodium (Fluorescein 1 Mg Strip) 1 mg EYE-RIGHT NOW ONE Stop: 06/27/20 07:20 Last Admin: 06/27/20 07:27 Dose: 1 mg Documented by: WILSON Proparacaine HCl (Proparacaine 0.5% Ophth Dayanara) 2 drops EYE-RIGHT NOW ONE Stop: 06/27/20 07:20 Last Admin: 06/27/20 07:27 Dose: 1 drop Documented by: WILSON Vital Signs Vital signs: Vital Signs - 8 hr 06/27/20 07:12 Temperature 97.7 F Pulse Rate 79 Respiratory Rate 16 Blood Pressure 135/79 Pulse Oximetry 95 MDM - Eye Problem MDM Narrative Medical decision making narrative: No foreign body identified no dye uptake he was irrigated at the eye station before I evaluated him. Proparacaine seem to help the pain. Will put him on antibiotics. Discharge Plan Departure Patient Disposition: Home Clinical Impression: Acute conjunctivitis, right eye Qualifiers: Acute conjunctivitis type: bacterial Qualified Code(s): H10.31 - Unspecified acute conjunctivitis, right eye Instructions: Conjunctivitis Activity Restrictions/Additional Instructions: *You have been diagnosed with right eye infection *What to do: At this time no foreign body is seen in her eye. It is likely irritated his hopefully it improves throughout the day after being thoroughly washed out. *Continue to take medications as directed Polytrim eyedrops 1 drop every 4 hours while awake for 7 days Motrin 800 mg every 8 hours need for [id number] pain Tylenol 650 mg every 4-6 hours if needed for [id number] pain *Follow up with your primary care provider in 2-3 days *Return to ER if you should have worsening pain, blurry or loss of vision or any new, worsening or concerning symptoms Prescriptions: New polymyxin B sulf-trimethoprim [Polytrim] 10,000 unit- 1 mg/mL drops 1 drp EYE-RIGHT Q4HRWA 7 Days Qty: 10 RF: 0 No Action ondansetron 4 mg tablet,disintegrating 4 mg PO Q8H PRN (Reason: nausea and vomiting) Qty: 10 RF: 0 Referrals: [facility] [Outside]
== END 2020-06-27 08:03 | disposition home or self-care (01) ==
PROVIDERS: Emergency Provider Emergency Medicine
DX: H10.31 Unspecified acute conjunctivitis, right eye (principal)
CPT/HCPCS: 99281; 99282